=== PATIENT | female | born 1975 | race Caucasian/White ===

== ENCOUNTER 2017-03-14 19:02 | Emergency (ER) | payer OTHER ==
--- NOTE | 2017-03-17 04:09 | ER ---
ADMIT: 03/14/2017 RM/LOC: ER [facility] MR#: [id number] [id number] [place], [place] [address] [place] [address] Emergency Room Report SEX: F AGE: 41 : 1975 DATE: 03/14/2017 BRIEF ADDENDUM: Please see my T-sheet for complete review of systems, past medical history, and physical exam. CHIEF COMPLAINT: Vomiting and diarrhea. HISTORY OF PRESENT ILLNESS: This is a 41-year-old, white female, who presents with her for evaluation for 3 days of upper respiratory symptoms, diarrhea, and vomiting. The patient states she has multiple sick contacts at home, currently being treated for upper respiratory infections. She states over the past 3 days she has had increased weakness, had 33 episodes of loose stools on Sunday, has been coughing so hard that she vomits. Admits to some diffuse abdominal pain. Losing her voice. Overall, she feels very poorly. She does have a cough, nonproductive. No hemoptysis. Admits to severe sore throat. States she is unable to swallow pills. Does have a past medical history significant for anxiety. ALLERGIES: WELLBUTRIN. COURSE IN THE EMERGENCY ROOM: The patient was seen and examined. PHYSICAL EXAMINATION: VITAL SIGNS: She has a fever of 101.8, BP 145/94, heart rate 98, and respirations 18. GENERAL: She is in mild amount of distress. HEENT: She does have some posterior pharynx erythema. No exudates. Edematous nasal mucosa. Pain over palpation of the maxillary sinuses. Does have some lymphadenopathy anterior cervical. LUNGS: No respiratory distress. No wheezes or rhonchi. HEART: Regular rate and rhythm. ABDOMEN: Belly is soft. Generalized tenderness. SKIN: Warm and dry. No evidence of any pedal edema. I did get CBC and BMP today showing white count 6.0, hemoglobin 13.9, hematocrit 39.6, and platelets 170. Sodium 143, potassium 3.8, CO2 of 25, BUN 7, and creatinine 0.7. Also, gave her a liter of normal saline, 4 of Zofran ADMIT: 03/14/2017 RM/LOC: ER [facility] MR#: [id number] [address] [place] [address] Emergency Room Report SEX: F AGE: 41 : 1975 IV as well as 15 of Toradol IV. States her nausea is improved. She feels less achy and overall feels mildly better. Did give her a gram of Rocephin prior to discharge. IMPRESSION: Acute bacterial sinusitis. DISPOSITION: The patient will be discharged with a script for Augmentin 875 one tab p.o. b.i.d. x7 days. She is to continue her home medications as prescribed. Increase her fluids. Use Tylenol or Motrin as needed for pain and fever. To return home and rest. Follow up with Dr. Kelly as needed. Questions sought and answered to the best of my ability and to the patient's satisfaction. Discharged in stable condition. TRU Valente / Jaquan Medina MD / modl JOB #: [id number] CC: Jaquan Medina MD, Attending Physician William Kelly MD, Family Physician
== END 2017-03-14 22:17 | disposition home or self-care (01) ==
LOC: ER 19:02
DX: J01.90 Acute sinusitis, unspecified (principal); B96.89 Other specified bacterial agents as the cause of diseases classified elsewhere; F41.9 Anxiety disorder, unspecified